=== PATIENT | male | born 1970 | race Caucasian/White ===

== ENCOUNTER 2022-03-27 03:29 | Emergency (ER) | payer BC ==
[~2022-03-27] VITALS: Ht 172.7 cm; Wt 100.0 kg
[2022-03-27] MEDS ORDERED: KETOROLAC 30 MG/ML VIAL IVP STA (03:41)
[2022-03-27] MEDS ORDERED: LACTATED RINGERS 1,000 ML IV ONE (03:45)
--- NOTE | 2022-03-27 03:46 | ED Back Pain ---
General Stated Complaint: LOWER BACK PAIN Source of Information: Patient (PEE CORADO DO) History of Present Illness Date Seen by Provider: March 27, 2022 Time Seen by Provider: 03:35 Initial Comments PT ARRIVES VIA POV FROM HOME C/O LEFT FLANK PAIN SINCE MIDNIGHT ALSO C/O DARK/BLOODY URINE NO DIFFICULTY URINATING NO NAUSEA/VOMITING NO FEVER NO HISTORY OF [place] HAS HAD LUMBAR SURGERY NO ABDOMINAL SURGERIES HAS NOT TAKEN ANYTHING FOR PAIN NO PRIOR VISITS HERE Other Comments PCP: DR. VAZQUEZ (PEE CORADO DO) Allergies and Home Medications Allergies Coded Allergies: No Known Drug Allergies (Unverified , 03/27/22) Patient Home Medication List Home Medication List Reviewed: Yes (KATHY HENRY MD) Ciprofloxacin HCl (Ciprofloxacin HCl) 500 Mg Tablet, 500 MG PO BID Prescribed by: KATHY HENRY on 03/27/22 0948 Ketorolac Tromethamine (Ketorolac Tromethamine) 10 Mg Tablet, 10 MG PO Q6H Prescribed by: ERHAN COFFEY on 03/28/22 1208 Multivitamin (Multi-Vitamin Daily) 1 Each Tablet, 1 EACH PO DAILY, (Reported) Entered as Reported by: PEÑA LINARES on 03/27/22 1551 Nitrofurantoin Monohyd/M-Cryst (Macrobid 100 mg Capsule) 100 Mg Capsule, 1 TAB PO BID WITH MEALS Prescribed by: REHAN COFFEY on 03/28/22 1208 Ondansetron (Ondansetron Odt) 4 Mg Tab.rapdis, 4 MG PO Q8H PRN for nausea Prescribed by: KATHY HENRY on 03/27/22 0948 Oxycodone HCl/Acetaminophen (Oxycodone-Acetaminophen 5-325) 5 Mg-325 Mg Tablet, 1 EACH PO Q6H PRN for PAIN-SEVERE Prescribed by: KATHY HENRY on 03/27/22 0948 Simvastatin (Simvastatin) 20 Mg Tablet, 20 MG PO HS, (Reported) Entered as Reported by: PEÑA LINARES on 03/27/22 1551 Tamsulosin HCl (Flomax) 0.4 Mg Cap, 0.4 MG PO HS Prescribed by: KATHY HENRY on 03/27/22 0948 Verapamil HCl (Verapamil ER) 240 Mg Tablet.er, 240 MG PO DAILY, (Reported) Entered as Reported by: PEÑA LINARES on 03/27/22 4657 Review of Systems Constitutional: no symptoms reported Respiratory: no symptoms reported Cardiovascular: no symptoms reported Gastrointestinal: no symptoms reported Genitourinary: see HPI, hematuria Musculoskeletal: see HPI, back pain Skin: no symptoms reported Psychiatric/Neurological: No Symptoms Reported (PEE CORADO DO) Past Fhtrdxj-Zyhbia-Jkkrvl Hx Patient Social History Tobacco Use?: No Substance use?: No Alcohol Use?: No (PEE CORADO DO) Past Medical History Surgeries: Yes (LUMBAR SPINE SURGERY ) Orthopedic Respiratory: No Cardiac: No Neurological: No Genitourinary: No Gastrointestinal: No Musculoskeletal: Yes Chronic Back Pain Endocrine: No HEENT: No Cancer: No Psychosocial: No Integumentary: No Blood Disorders: No (PEE CORADO DO) Physical Exam Vital Signs Vital Signs - First Documented 03/27/22 03:43 Temp 36.9 Pulse 101 Resp 18 B/P (MAP) 174/106 (128) Pulse Ox 98 O2 Delivery Room Air (KATHY HENRY MD) Vital Signs Capillary Refill : (PEE CORADO DO) Height, Weight, BMI Height: '" Weight: lbs. oz. kg; BMI Method: General Appearance: WD/WN, Anxious, Other (LOOKS UNCOMFORTABLE) Cardiovascular: Regular Rate, Rhythm Respiratory: Normal Breath Sounds Gastrointestinal: Non Tender, Soft Back: CVA Tenderness (L) Extremity: Normal Inspection Neurologic/Psychiatric: Alert, Oriented x3, No Motor/Sensory Deficits, country sales manager II- XII Norm as Tested Skin: Normal Color, Warm/Dry; No Rash (PEE CORADO DO) Progress/Results/Core Measures Results/Orders Lab Results Laboratory Tests Test 03/27/22 03:41 03/27/22 03:46 Range/Units White Blood Count 13.7 H 4.3-11.0 10^3/uL Red Blood Count 5.47 4.30-5.52 10^6/uL Hemoglobin 15.8 13.3-17.7 g/dL Hematocrit 48 40-54 % Mean Corpuscular Volume 87 80-99 fL Mean Corpuscular Hemoglobin 29 25-34 pg Mean Corpuscular Hemoglobin Concent 33 32-36 g/dL Red Cell Distribution Width 13.2 10.0-14.5 % Platelet Count 396 130-400 10^3/uL Mean Platelet Volume 9.1 9.0-12.2 fL Immature Granulocyte % (Auto) 0 % Neutrophils (%) (Auto) 70 42-75 % Lymphocytes (%) (Auto) 21 12-44 % Monocytes (%) (Auto) 7 0-12 % Eosinophils (%) (Auto) 1 0-10 % Basophils (%) (Auto) 0 0-10 % Neutrophils # (Auto) 9.6 H 1.8-7.8 10^3/uL Lymphocytes # (Auto) 2.9 1.0-4.0 10^3/uL Monocytes # (Auto) 1.0 0.0-1.0 10^3/uL Eosinophils # (Auto) 0.1 0.0-0.3 10^3/uL Basophils # (Auto) 0.1 0.0-0.1 10^3/uL Immature Granulocyte # (Auto) 0.1 0.0-0.1 10^3/uL Sodium Level 142 135-145 MMOL/L Potassium Level 3.3 L 3.6-5.0 MMOL/L Chloride Level 103 98-107 MMOL/L Carbon Dioxide Level 22 21-32 MMOL/L Anion Gap 17 H 5-14 MMOL/L Blood Urea Nitrogen 12 7-18 MG/DL Creatinine 1.18 0.60-1.30 MG/DL Estimat Glomerular Filtration Rate 75 BUN/Creatinine Ratio 10 Glucose Level 156 H 70-105 MG/DL Calcium Level 9.9 8.5-10.1 MG/DL Corrected Calcium 8.5-10.1 MG/DL Total Bilirubin 0.5 0.1-1.0 MG/DL Aspartate Amino Transf (AST/SGOT) 28 5-34 U/L Alanine Aminotransferase (ALT/SGPT) 61 H 0-55 U/L Alkaline Phosphatase 73 40-136 U/L Total Protein 7.8 6.4-8.2 GM/DL Albumin 4.7 H 3.2-4.5 GM/DL Amylase Level 81 25-125 U/L Lipase 31 8-78 U/L Urine Color RED H Urine Clarity CLOUDY Urine pH 6.0 5-9 Urine Specific [place] >=1.030 1.016-1.022 Urine Protein 2+ H NEGATIVE Urine Glucose (UA) NEGATIVE NEGATIVE Urine Ketones NEGATIVE NEGATIVE Urine Nitrite NEGATIVE NEGATIVE Urine Bilirubin 1+ H NEGATIVE Urine Urobilinogen 0.2 < = 1.0 MG/DL Urine Leukocyte Esterase NEGATIVE NEGATIVE Urine RBC (Auto) 3+ H NEGATIVE Urine RBC TNTC H /HPF Urine WBC 5-10 H /HPF Urine Squamous Epithelial Cells RARE /HPF Urine Crystals NONE /LPF Urine Bacteria MODERATE H /HPF Urine Casts NONE /LPF Urine Mucus SMALL H /LPF Urine Culture Indicated YES Urine Opiates Screen NEGATIVE NEGATIVE Urine Oxycodone Screen NEGATIVE NEGATIVE Urine Methadone Screen NEGATIVE NEGATIVE Urine Propoxyphene Screen NEGATIVE NEGATIVE Urine Barbiturates Screen NEGATIVE NEGATIVE Ur Tricyclic Antidepressants Screen NEGATIVE NEGATIVE Urine Phencyclidine Screen NEGATIVE NEGATIVE Urine Amphetamines Screen NEGATIVE NEGATIVE Urine Methamphetamines Screen NEGATIVE NEGATIVE Urine Benzodiazepines Screen NEGATIVE NEGATIVE Urine Cocaine Screen NEGATIVE NEGATIVE Urine Cannabinoids Screen NEGATIVE NEGATIVE (KATHY HENRY MD) Micro Results Microbiology 03/27/22 Urine Culture - Final, Complete Gram Pos Mixed Bacterial Mila (KATHY HENRY MD) Medications Given in ED (KATHY HENRY MD) Vital Signs/I&O 03/27/22 03/27/22 03:43 06:33 Temp 36.9 Pulse 101 79 Resp 18 20 B/P (MAP) 174/106 (128) 137/101 Pulse Ox 98 97 O2 Delivery Room Air Room Air (KATHY HENRY MD) Progress Progress Note : Progress Note GIVEN IV FLUIDS AND TORADOL PAIN IMMEDIATELY RELIEVED WITH TORADOL, THEN CAME BACK GIVEN MORPHINE WITH TRANSIENT RELIEF OF PAIN, ADDITIONAL DOSES GIVEN GIVEN HYDROCODONE AND FLOMAX ALSO GIVEN ROCEPHIN FOR UTI MARKED DELAY IN OBTAINING CT SCAN REPORT. 0615--CARE TURNED OVER TO DR. HENRY. WILL MAKE SURE PAIN IS TOLERABLE PRIOR TO DISMISSAL. (PEE CORADO DO) Diagnostic Imaging Comments KUB--NO ACUTE PROCESS, PENDING RADIOLOGIST REVIEW CT ABDOMEN/PELVIS--PER RADIOLOGIST REPORT AT 0557 FINDINGS: The lung bases are clear. The heart is normal in size. The liver demonstrates hypoattenuation consistent with fatty infiltration. The spleen appears normal. The pancreas is normal. The adrenal glands are normal. The right kidney demonstrates no hydronephrosis or obstructing calculi. The left kidney demonstrates mild hydronephrosis and there is an obstructing 5 mm calculus in the proximal left ureter at the ureteropelvic junction. The remainder of the ureter and bladder are unremarkable. The appendix appears normal. Bowel loops are nondistended without obstruction. There is diverticulosis of the descending and sigmoid colon without diverticulitis. There is a small fat-containing right inguinal hernia with no bowel involvement. No free fluid or free air is seen. There are degenerative changes in the lower lumbar spine. No acute osseous abnormality is seen. IMPRESSION: 1. Obstructing 5 mm calculus in the left ureteropelvic junction resulting in mild hydronephrosis. 2. Hepatic steatosis. 3. Small fat-containing right inguinal hernia. Reviewed: Reviewed by Me (PEE CORADO DO) Departure Communication (Admissions) 0610--SPOKE WITH DR. ZAMARRIPA, UROLOGIST, HE WILL SEE PT IN OFFICE TODAY. PT TO CALL THIS AM FOR APPOINTMENT TIME. (PEE CORADO DO) Impression Primary Impression: Left ureteral calculus Additional Impression: UTI (urinary tract infection) Disposition: HOME, SELF-CARE Condition: Stable Departure-Patient Inst. Decision time for Depature: 06:30 (KATHY HENRY MD) Scripts Ciprofloxacin HCl (Ciprofloxacin HCl) 500 Mg Tablet 500 MG PO BID, #14 TAB Prov: KATHY HENRY MD 03/27/22 Tamsulosin HCl (Flomax) 0.4 Mg Cap 0.4 MG PO HS, #14 CAP Prov: KATHY HENRY MD 03/27/22 Ondansetron (Ondansetron Odt) 4 Mg Tab.rapdis 4 MG PO Q8H PRN for nausea, #15 TAB Prov: KATHY HENRY MD 03/27/22 Oxycodone HCl/Acetaminophen (Oxycodone-Acetaminophen 5-325) 5 Mg-325 Mg Tablet 1 EACH PO Q6H PRN for PAIN-SEVERE MDD 6, #15 TAB Prov: KATHY HENRY MD 03/27/22 PEE CORADO DO March 27, 2022 03:46 KATHY HENRY MD March 27, 2022 09:49
[2022-03-27 03:52] LABS: BASOPHILS # (AUTO) 0.1 10^3/uL (0.0-0.1); BASOPHILS % (AUTO) 0 % (0-10); EOSINOPHILS # (AUTO) 0.1 10^3/uL (0.0-0.3); EOSINOPHILS % (AUTO) 1 % (0-10); HEMATOCRIT 48 % (40-54); HEMOGLOBIN 15.8 g/dL (13.3-17.7); LYMPHOCYTES # (AUTO) 2.9 10^3/uL (1.0-4.0); LYMPHOCYTES % (AUTO) 21 % (12-44); MEAN CORPUSCULAR HEMOGLOBIN 29 pg (25-34); MEAN CORPUSCULAR HGB CONC 33 g/dL (32-36); MEAN CORPUSCULAR VOLUME 87 fL (80-99); MEAN PLATELET VOLUME 9.1 fL (9.0-12.2); MONOCYTES % (AUTO) 7 % (0-12); NEUTROPHILS # (AUTO) 9.6 10^3/uL (1.8-7.8); NEUTROPHILS % (AUTO) 70 % (42-75); PLATELET COUNT 396 10^3/uL (130-400); WHITE BLOOD COUNT 13.7 10^3/uL (4.3-11.0)
[2022-03-27 03:55] LABS: CLARITY,URINE CLOUDY; COLOR,URINE RED; GLUCOSE, URINE (UA) NEGATIVE (NEGATIVE); KETONES,URINE NEGATIVE (NEGATIVE); LEUKOCYTE ESTERASE ,URINE NEGATIVE (NEGATIVE); NITRITE,URINE NEGATIVE (NEGATIVE); PROTEIN,URINE 2+ (NEGATIVE)
[2022-03-27 04:00] LABS: BACTERIA,URINE MODERATE /HPF; BILIRUBIN,URINE 1+ (NEGATIVE); RBC,URINE TNTC /HPF; SQUAMOUS EPITHELIAL CELL,UR RARE /HPF
[2022-03-27 04:02] LABS: AMPHETAMINE SCREEN, URINE NEGATIVE (NEGATIVE); BARBITURATE SCREEN URINE NEGATIVE (NEGATIVE); BENZODIAZEPINES SCREEN URINE NEGATIVE (NEGATIVE); CANNABINOID SCREEN, URINE NEGATIVE (NEGATIVE); COCAINE SCREEN URINE NEGATIVE (NEGATIVE); METHADONE STAT NEGATIVE (NEGATIVE); OPIATE SCREEN URINE NEGATIVE (NEGATIVE); OXYCODONE STAT NEGATIVE (NEGATIVE); PROPOXYPHENE STAT NEGATIVE (NEGATIVE); TRICYCLIC ANTIDEPRESSANTS SCRE NEGATIVE (NEGATIVE)
[2022-03-27 04:09] LABS: ALBUMIN 4.7 GM/DL (3.2-4.5)
[2022-03-27 04:10] LABS: CHLORIDE 103 MMOL/L (98-107); POTASSIUM 3.3 MMOL/L (3.6-5.0); SODIUM 142 MMOL/L (135-145)
[2022-03-27 04:11] LABS: AMYLASE 81 U/L (25-125); CALCIUM 9.9 MG/DL (8.5-10.1)
[2022-03-27 04:12] LABS: GLUCOSE 156 MG/DL (70-105); TOTAL PROTEIN 7.8 GM/DL (6.4-8.2)
[2022-03-27 04:13] LABS: CARBON DIOXIDE 22 MMOL/L (21-32)
[2022-03-27 04:14] LABS: BILIRUBIN,TOTAL 0.5 MG/DL (0.1-1.0)
[2022-03-27 04:16] LABS: ALKALINE PHOSPHATASE 73 U/L (40-136); CREATININE SERUM 1.18 MG/DL (0.60-1.30); GFR ESTIMATED 75
[2022-03-27 04:17] LABS: BUN/CREATININE RATIO 10
[2022-03-27 04:19] LABS: ALANINE AMINOTRANSFERASE 61 U/L (0-55); LIPASE 31 U/L (8-78)
[2022-03-27] MEDS ORDERED: morphine INJ 10 MG/ML 1ML (SYR OR VIAL) IVP STA ×2 (05:04→06:14)
--- NOTE | 2022-03-27 05:54 | Diagnostic Imaging Report ---
PROCEDURE: CT urinary tract, rule out kidney stone. TECHNIQUE: Multiple contiguous axial images were obtained through the abdomen and pelvis without the use of intravenous contrast. Auto Exposure Controls were utilized during the CT exam to meet ALARA standards for radiation dose reduction. INDICATION: Left flank pain COMPARISON: None FINDINGS: The lung bases are clear. The heart is normal in size. The liver demonstrates hypoattenuation consistent with fatty infiltration. The spleen appears normal. The pancreas is normal. The adrenal glands are normal. The right kidney demonstrates no hydronephrosis or obstructing calculi. The left kidney demonstrates mild hydronephrosis and there is an obstructing 5 mm calculus in the proximal left ureter at the ureteropelvic junction. The remainder of the ureter and bladder are unremarkable. The appendix appears normal. Bowel loops are nondistended without obstruction. There is diverticulosis of the descending and sigmoid colon without diverticulitis. There is a small fat-containing right inguinal hernia with no bowel involvement. No free fluid or free air is seen. There are degenerative changes in the lower lumbar spine. No acute osseous abnormality is seen. IMPRESSION: 1. Obstructing 5 mm calculus in the left ureteropelvic junction resulting in mild hydronephrosis. 2. Hepatic steatosis. 3. Small fat-containing right inguinal hernia. A preliminary report was not available at the time of dictation. Dictated by: Dictated on workstation # [id number]
--- NOTE | 2022-03-27 06:02 | Diagnostic Imaging Report ---
EXAMINATION: Abdomen 1 view HISTORY: abdomen pain COMPARISON: None available. FINDINGS: There is a moderate amount of gas and stool throughout the colon. Nonobstructive bowel gas pattern. No radiopaque foreign body. The lung bases are clear. The osseous structures are intact. IMPRESSION: Moderate stool burden without other acute abnormality in the abdomen. Dictated by: Dictated on workstation # [id number]
[2022-03-27] MEDS ORDERED: cefTRIAXone 1 GM PRE-MIX 50 ML IV STA (06:14)
[2022-03-27] MEDS ORDERED: TAMSULOSIN 0.4 MG (FLOMAX) CAP PO SCH (06:15)
[2022-03-27 06:33] VITALS: BP 137/101
[2022-03-27] MEDS ORDERED: CIPR500T5 PO ×2 (09:48)
[2022-03-27] MEDS ORDERED: TMSL.4C PO ×2 (09:48)
[2022-03-27] MEDS ORDERED: OXYC1TAB11 PO ×2 (09:48)
[2022-03-27] MEDS ORDERED: ONDA4TAB11 PO ×2 (09:48)
[2022-03-27] MEDS ORDERED: VERA240T90 PO ×2 (15:51)
[2022-03-27] MEDS ORDERED: MULT-974 PO ×2 (15:51)
[2022-03-27] MEDS ORDERED: SIMV20TA26 PO ×2 (15:51)
[2022-03-28] MEDS ORDERED: NITR-65 PO ×2 (12:08)
[2022-03-28] MEDS ORDERED: KETO10TA PO ×2 (12:08)
== END 2022-03-27 06:33 | disposition home or self-care (01) ==
LOC: ER 03:32
DX: N13.6 Pyonephrosis (principal); Z98.890 Other specified postprocedural states
CPT/HCPCS: 36415; 74018; 74176; 80053; 80306; 81000; 82150; 83690; 85025; 87088

== ENCOUNTER 2022-03-27 14:26 | Outpatient (CLI) | payer BC ==
[~2022-03-27] VITALS: Ht 172.7 cm; Wt 99.1 kg
[~2022-03-27 14:26] MED LIST: CIPR500T5 PO; ONDA4TAB11 PO; OXYC1TAB11 PO; TMSL.4C PO
[2022-03-27] MEDS ORDERED: MULT-974 PO ×2 (15:51)
[2022-03-27] MEDS ORDERED: SIMV20TA26 PO ×2 (15:51)
[2022-03-27] MEDS ORDERED: VERA240T90 PO ×2 (15:51)
[2022-03-28] MEDS ORDERED: NITR-65 PO ×2 (12:08)
[2022-03-28] MEDS ORDERED: KETO10TA PO ×2 (12:08)
== END 2022-03-27 16:16 | disposition home or self-care (01) ==
LOC: PREOP 14:26
PROVIDERS: ATTEND Urology
DX: Z01.818 Encounter for other preprocedural examination (principal)

== ENCOUNTER 2022-03-28 06:57 | Day surgery (SDC) | payer BC, OTHER ==
[~2022-03-28] VITALS: Ht 172.7 cm; Wt 99.1 kg
[2022-03-28] VITALS (9 sets, daily range): BP systolic 98–153; BP diastolic 66–90
[~2022-03-28 06:57] MED LIST changes: +MULT-974 PO; +SIMV20TA26 PO; +VERA240T90 PO
[2022-03-28] MEDS ORDERED: cefTRIAXone 1 GM PRE-MIX 50 ML IV ONE (07:15)
--- NOTE | 2022-03-28 07:31 | Progress Note-Pre Operative ---
Pre-Operative Progress Note H&P Reviewed The H&P was reviewed, patient examined and no changes noted. Date Seen by Provider: March 28, 2022 Time Seen by Provider: 07:30 Date H&P Reviewed: March 28, 2022 Time H&P Reviewed: 07:30 Pre-Operative Diagnosis: LT PROXIMAL URETERAL STONE ARMANI ZAMARRIPA MD March 28, 2022 07:31
[2022-03-28] MEDS ORDERED: LACTATED RINGERS 1,000 ML IV PRN (07:45)
[2022-03-28] MEDS ORDERED: fentaNYL INJ 100 MCG/2 ML AMP IVP PRN (08:15)
--- NOTE | 2022-03-28 08:18 | Diagnostic Imaging Report ---
INDICATION: Nephrolithiasis, pre-extracorporeal shock wave lithotripsy. TECHNIQUE: Single supine view of the abdomen 7:20 AM CORRELATION STUDY: 03/27/2022 FINDINGS: Approximately 5 mm calcification projects over the likely region of the left renal pelvis. No definitive calcification along the expected course of either ureter. Bowel gas pattern is nonobstructed with mild stool retention. Minimal leftward rotation of the superior lumbar spine. IMPRESSION: 1. Small calcification of the expected location left renal pelvis and/or proximal ureter. Dictated by: Dictated on workstation # [id number]
[2022-03-28] MEDS ORDERED: fentaNYL INJ 100 MCG/2 ML AMP ONE ×2 (08:19→09:36)
[2022-03-28] MEDS ORDERED: proPOfol 200 MG/20 ML (DIPRIVAN) VIAL IV ONE (09:36)
[2022-03-28] MEDS ORDERED: ONDANSETRON 4 MG/2 ML (SDV) Z0FRAN ONE (09:36)
[2022-03-28] MEDS ORDERED: MIDAZOLAM 2 MG/2 ML (VERSED) VIAL ONE (09:36)
[2022-03-28] MEDS ORDERED: LIDOCAINE PF 2% 5 ML (XYLOCAINE) VIAL ONE (09:36)
[2022-03-28] MEDS ORDERED: FUROSEMIDE 40 MG/4 ML INJ (LASIX) ONE (09:39)
[2022-03-28] MEDS ORDERED: KETOROLAC 30 MG/ML VIAL ONE (09:39)
--- NOTE | 2022-03-28 10:02 | Discharge Inst-Urology ---
Discharge Inst-Urology Reconcile Patient Problems Problems Reviewed?: Yes Final Diagnosis LT PROXIMAL URETERAL STONE Patient Instructions/Follow Up Plan/Assessment/Instructions Please make appointment to been seen in office in 2 weeks. KUB prior to it KUB on way home Post ESWL instructions Increase oral fluids for 48 hours and then as needed. Diet and Activity as tolerated. If questions or concerns contact your physician Or seek help at emergency department. ARMANI ZAMARRIPA MD March 28, 2022 10:02
--- NOTE | 2022-03-28 10:03 | Progress Note-Post Operative ---
Post-Operative Progess Note Surgeon (s)/Computer Support Specialist (s) Surgeon ARMANI ZAMARRIPA MD Computer Support Specialist: NONE Pre-Operative Diagnosis LT PROXIMAL URETERAL STONE Post-Operative Diagnosis SAME Procedure & Operative Findings Date of Procedure 03/28/22 Procedure Performed/Findings LT ESWL Anesthesia Type GENERAL Estimated Blood Loss Estimated blood loss (mL): NONE Specimens/Packing Specimens Removed NONE Packing: NONE ARMANI ZAMARRIPA MD March 28, 2022 10:03
[2022-03-28] MEDS ORDERED: SEVOFLURANE (ULTANE) 15 ML INHAL SOLN ONE (10:33)
[2022-03-28] MEDS ORDERED: ONDANSETRON 4 MG/2 ML (SDV) Z0FRAN IVP PRN (10:45)
[2022-03-28] MEDS ORDERED: morphine INJ 10 MG/ML 1ML (SYR OR VIAL) IVP ONE (10:45)
[2022-03-28] MEDS ORDERED: PROMETHAZINE INJ 25 MG/ML (PHENERGAN) AMP IVP ONE (10:45)
[2022-03-28] MEDS ORDERED: HYDROmorphone 2 MG/ML VIAL (DILAUDID) IV ONE (10:45)
[2022-03-28] MEDS ORDERED: NITR-65 PO ×2 (12:08)
[2022-03-28] MEDS ORDERED: KETO10TA PO ×2 (12:08)
--- NOTE | 2022-03-28 12:33 | Anesthesia-General Post-Op ---
General Patient Condition Mental Status/LOC: Same as Preop Cardiovascular: Satisfactory Nausea/Vomiting: Absent Respiratory: Satisfactory Pain: Controlled Complications: Absent Post Op Complications Complications None Follow Up Care/Instructions Patient Instructions None needed. Anesthesia/Patient Condition Patient Condition Patient is doing well, no complaints, stable vital signs, no apparent adverse anesthesia problems. No complications reported per nursing. ALEXEI MEJÍA CRNA March 28, 2022 12:33
--- NOTE | 2022-03-28 13:06 | Diagnostic Imaging Report ---
EXAMINATION: ABDOMEN/KUB 1VIEW. INDICATION: Left-sided renal stone. Lithotripsy. COMPARISON: Earlier this same day at 7:28 AM. TECHNIQUE: AP view of the abdomen. FINDINGS: The previously noted 5 mm stone in the region of the lower pole of the left kidney is no longer visualized. Nonobstructed bowel gas pattern. Stable regional skeleton. IMPRESSION: The 5 mm density noted adjacent to the lower pole of the left kidney is no longer visualized. Dictated by: Dictated on workstation # [id number]
--- NOTE | 2022-03-28 13:34 | OPERATIVE REPORT ---
DATE OF SERVICE: 03/28/2022 PREOPERATIVE DIAGNOSIS: Left proximal ureteral stone. POSTOPERATIVE DIAGNOSIS: Left proximal ureteral stone. OPERATION PERFORMED: Left ESWL. SURGEON: Isidro Zamarripa MD. ANESTHESIA: General. COMPLICATIONS: None. DESCRIPTION OF PROCEDURE: Under satisfactory general anesthesia, the patient in supine position on the ESWL table, the left proximal ureteral stone was localized. Shocks were delivered at kV of 6. Total of 2500 shocks completely fragmented the stone. The patient received of Lasix and 30 mg of Toradol IV at the end of the procedure. He tolerated the procedure and anesthesia well and was sent to recovery room in a stable condition. CC: Dr. Crawford - requested, unable to deliver. Job ID: [id number] DocumentID: [id number] Dictated Date: 03/28/2022 10:25:08 [place] Date: 03/28/2022 13:33:18 Dictated By: ISIDRO ZAMARRIPA MD
== END 2022-03-28 12:45 | disposition home or self-care (01) ==
LOC: SDC 06:57
PROVIDERS: ATTEND Urology
DX: N20.1 Calculus of ureter (principal); I10 Essential (primary) hypertension; N40.1 Benign prostatic hyperplasia with lower urinary tract symptoms; R35.1 Nocturia; R32 Unspecified urinary incontinence
CPT/HCPCS: 74018; 87081

== ENCOUNTER → 2022-04-13 | Outpatient (CLI) | payer OTHER ==
[~2022-04-13] MED LIST changes: +KETO10TA PO; +NITR-65 PO
--- NOTE | 2022-04-13 16:31 | Diagnostic Imaging Report ---
EXAMINATION: Abdomen 1 view HISTORY: Left ureteral stone COMPARISON: 03/28/2022 FINDINGS: No calcifications are seen projecting over the kidneys or ureters. No dilated bowel. No free air. IMPRESSION: 1. No calcifications are seen projecting over the kidneys or ureters. Dictated by: Dictated on workstation # [id number]
== END ==
LOC: RAD 12:50
PROVIDERS: ATTEND Urology
DX: N20.1 Calculus of ureter (principal)
CPT/HCPCS: 74018